=== PATIENT | male | born 1985 | race Two or more races ===

== ENCOUNTER 2022-02-11 19:05 | Emergency (ER) | payer SELFPAY ==
[~2022-02-11] VITALS: Ht 167.6 cm; Wt 74.8 kg
[2022-02-11] MEDS: CEFTRIAXONE 1 G in IV D5W 50 ML IV ONE (00:35)
--- NOTE | 2022-02-11 19:40 | NUR ---
PATIENT BIBRA 76 FROM [place] C/O OD GIVEN 4 NARCAN TIME BROKER. PATIENT IS A/O X 2, RR EVEN AND UNLABORED, NO SOB NOTED. PATIENT TAKEN TO ER BED 11. PATIENT CONNECTED TO GRAIN SHIPPER AND POX
[2022-02-11] MEDS ORDERED: ONDANSETRON HCL/PF 4 MG/2 ML VIAL ONE (19:43)
[2022-02-11] MEDS: ONDANSETRON HCL/PF 4 MG/2 ML VIAL IV ONE (19:54)
--- NOTE | 2022-02-11 19:54 | NUR ---
NAHUM [phone]
[2022-02-11 20:06] LABS: BASOPHILS # (AUTO) 0.1 K/uL (0.0-0.2); BASOPHILS % (AUTO) 0.6 % (0.0-2.0); HEMATOCRIT 42 % (39-51); HEMOGLOBIN 14.1 g/dL (13.5-17.5); LYMPHOCYTES # (AUTO) 0.8 K/uL (0.8-4.8); LYMPHOCYTES % (AUTO) 7.7 % (20.0-44.0); MEAN CORPUSCULAR HGB CONC 34 g/dl (31.0-36.0); MEAN CORPUSCULAR VOLUME 86 fL (80-96); MONOCYTES # (AUTO) 0.4 K/uL (0.1-1.30); MONOCYTES % (AUTO) 3.4 % (2.0-12.0); NEUTROPHILS # (AUTO) 9.1 K/uL (1.8-8.9); NEUTROPHILS % (AUTO) 87.3 % (43.0-81.0); PLATELET COUNT (AUTO) 279 K/uL (150-450); WHITE BLOOD COUNT (AUTO) 10.4 K/uL (4.3-11.0)
[2022-02-11 20:20] LABS: CALCIUM, SERUM 8.3 mg/dL (8.5-10.1); CARBON DIOXIDE 29 mmol/L (21-32); CHLORIDE 105 mmol/L (98-107); CREATININE 0.9 mg/dL (0.6-1.3); GLUCOSE 149 mg/dL (74-106); POTASSIUM 3.9 mmol/L (3.5-5.1); SODIUM SERUM 140 mmol/L (136-145); UREA NITROGEN, BLOOD 19 mg/dL (7-18)
[2022-02-11 20:30] LABS: ALANINE AMINOTRANSFERASE 116 U/L (12-78); ALBUMIN 3.7 g/dL (3.4-5.0); ALCOHOL, BLOOD < 3 mg/dL (0-0); ALKALINE PHOSPHATASE 121 U/L (46-116); ASPARTATE AMINOTRANSFERASE 155 U/L (15-37); BILIRUBIN,DIRECT 0.1 mg/dL (0.0-0.2); BILIRUBIN,TOTAL 0.2 mg/dL (0.2-1.0); TOTAL PROTEIN, SERUM 7.1 g/dL (6.4-8.2)
[2022-02-11 20:31] LABS: ACETAMINOPHEN < 0 ug/ml (10-30)
--- NOTE | 2022-02-11 20:55 | NUR ---
urine collected sent to lab
[2022-02-11 21:23] LABS: BILIRUBIN,URINE NEGATIVE (NEGATIVE); COLOR,URINE YELLOW (YELLOW); LEUKOCYTE ESTERASE ,URINE NEGATIVE (NEGATIVE); NITRITE, URINE POSITIVE (NEGATIVE); PROTEIN,URINE 30 mg/dl (NEGATIVE); UGLUCOSE >=1000 mg/dL (NEGATIVE); UROBILINOGEN,URINE 0.2 EU/dL (0.2)
[2022-02-11 21:34] LABS: BACTERIA,URINE 4+ /HPF (None Seen); RBC,URINE 21-50 /HPF (0-2); SQUAMOUS EPITHELIAL CELL,UR Few /HPF (None Seen)
[2022-02-11 21:35] LABS: COARSE GRANULAR CASTS,URINE Few /LPF (None Seen)
--- NOTE | 2022-02-11 23:27 | NUR ---
CINTHYA [phone]
[2022-02-12] MEDS ORDERED: CEFTRIAXONE 1GM BAG (ER ONLY) 50 ML IV ONE (00:34)
[2022-02-12 02:44] VITALS: BP 123/60
[2022-02-12] MEDS ORDERED: NALO4SPR NS (02:47)
--- NOTE | 2022-02-12 03:01 | NUR ---
[place] [phone]
--- NOTE | 2022-02-12 06:32 | NUR ---
Patient discharged to home in stable condition. Written and verbal after care instructions given. Patient verbalizes understanding of instruction.
== END 2022-02-12 06:34 | disposition home or self-care (01) ==
LOC: ER 19:12 → EDBD 19:12 → ER 02-12 06:34
DX: F11.129 Opioid abuse with intoxication, unspecified (principal); R41.82 Altered mental status, unspecified; F17.210 Nicotine dependence, cigarettes, uncomplicated; Z59.00 Homelessness unspecified
CPT/HCPCS: 36415; 70450; 72125; 80048; 80076; 80143; 80307; 80320; 81001; 85025; 87077; 87086; 87186; 96365; 96375; 99285; 99406; J0696 ×2; J2405; J7060; G0480